=== PATIENT | male | born 1995 | race Caucasian/White ===

== ENCOUNTER 2019-04-22 21:12 | Emergency (ER) | payer MEDICAID ==
[~2019-04-22] VITALS: Ht 170.2 cm; Wt 69.3 kg
[2019-04-22] MEDS ORDERED: ACETAMINOPHEN 500 MG TABLET PO ONE (21:30)
[2019-04-22] MEDS ORDERED: MAALOX/HYOSCYAMINE/LIDOCAINE 45 ML BTL PO ONE (21:30)
[2019-04-22] MEDS ORDERED: ONDANSETRON ODT 4 MG PO ONE (21:30)
[2019-04-22] MEDS ORDERED: MAALOX/HYOSCYAMINE/LIDOCAINE 45 ML BTL ONE (21:41)
[2019-04-22] MEDS ORDERED: ACETAMINOPHEN 500 MG TABLET ONE ×2 (21:41→21:46)
[2019-04-22] MEDS ORDERED: ONDANSETRON ODT 4 MG ONE (21:41)
[2019-04-22 21:48] LABS: BASOPHILS # (AUTO) 0.02 x10^3/uL (0-0.1); BASOPHILS % (AUTO) 0 % (0-1); EOSINOPHILS % (AUTO) 3 % (1-7); LYMPHOCYTES # (AUTO) 2.26 x10^3/uL (1-3.4); LYMPHOCYTES % (AUTO) 32 % (22-44); MD NO; MEAN CORPUSCULAR HEMOGLOBIN 29.3 pg (27.5-34.5); MEAN CORPUSCULAR HGB CONC 33.5 g/dL (33.2-36.2); MEAN CORPUSCULAR VOLUME 87.7 fL (81-97); MONOCYTES # (AUTO) 0.48 x10^3/uL (0.2-0.8); MONOCYTES % (AUTO) 7 % (2-9); NEUTROPHILS # (AUTO) 4.17 x10^3/uL (1.8-6.8); NEUTROPHILS % (AUTO) 59 % (42-75); PLATELET COUNT 228 x10^3/uL (130-400); RED BLOOD COUNT 5.04 x10^6/uL (4.38-5.82); RED CELL DISTRIBUTION WIDTH 13.5 % (9.4-14.8)
[2019-04-22 21:57] LABS: ALANINE AMINOTRANSFERASE 45 U/L (12-78); ALBUMIN 3.9 g/dL (3.4-5.0); ANION GAP 6 mmol/L (5-15); CALCIUM 9.4 mg/dL (8.5-10.1); CHLORIDE 106 mmol/L (98-107); CREATININE 0.75 mg/dL (0.7-1.3)
[2019-04-22 22:00] LABS: ALKALINE PHOSPHATASE 75 U/L (45-117); BILIRUBIN,TOTAL 0.3 mg/dL (0.2-1.0); TOTAL PROTEIN 7.4 g/dL (6.4-8.2)
[2019-04-22] MEDS ORDERED: PLEASE ENTER ALLERGIES MC SCH (22:00)
[2019-04-22 22:41] LABS: CULTURE INDICATED? YES; MICROSCOPIC INDICATED
[2019-04-22] MEDS ORDERED: CEFTRIAXONE 250 MG IM ONE (23:00)
[2019-04-22] MEDS ORDERED: AZITHROMYCIN 500 MG TABLET PO ONE (23:00)
[2019-04-22] MEDS ORDERED: CEFTRIAXONE 250 MG ONE (23:21)
[2019-04-22] MEDS ORDERED: AZITHROMYCIN 250 MG TABLET ONE (23:22)
[2019-04-22 23:32] VITALS: BP 116/74
== END 2019-04-22 23:35 | disposition home or self-care (01) ==
LOC: ED 21:38
DX: N30.00 Acute cystitis without hematuria (principal); R19.7 Diarrhea, unspecified; F17.200 Nicotine dependence, unspecified, uncomplicated
CPT/HCPCS: 36415; 80053; 81001; 83690; 85025; 87086; 87491; 87591; 96372; 99284; J0696; Q0162